=== PATIENT | male | born 1960 | race Hispanic/Latino ===

== ENCOUNTER 2022-07-03 11:20 | Inpatient (IN) | payer OTHER ==
[2022-07-03] VITALS (23 sets, daily range): BP systolic 109–175; BP diastolic 60–99
[~2022-07-03] VITALS: Ht 167.6 cm; Wt 94.8 kg
[2022-07-03] MEDS: NITROGLYCERIN 0.4 MG SL TAB SL PRN ×2 (11:21→11:26)
[2022-07-03] MEDS ORDERED: HEPARIN 25,000 UNITS/250ML D5W 250 ML IV PRN (11:30)
[2022-07-03] MEDS ORDERED: ASPIRIN 325MG TAB PO ONE (11:30)
[2022-07-03] MEDS ORDERED: NITROGLYCERIN 50MG/D5W 250ML 1 BOT IV PRN (11:30)
[2022-07-03] MEDS ORDERED: LIDOCAINE HCL 400MG/20ML VIAL ONE (11:32)
[2022-07-03] MEDS ORDERED: IOHEXOL 350 MG/ML 100ML INFUS..BTL IV ONE (11:33)
[2022-07-03] MEDS ORDERED: NITROGLYCERIN 50MG VIAL ONE (11:33)
[2022-07-03] MEDS ORDERED: IOHEXOL-350 50ML VIAL IV ONE (11:33)
[2022-07-03] MEDS ORDERED: FENTANYL CITRATE PF 50 MCG/1 ML 2ML VIAL ONE ×2 (11:33→12:28)
[2022-07-03] MEDS ORDERED: IOHEXOL-350 75 ML VIAL IV ONE (11:33)
[2022-07-03] MEDS ORDERED: HEPARIN 10,000 UNIT/10ML (1,000 UNIT/ML) VIAL ONE (11:33)
[2022-07-03] MEDS ORDERED: MIDAZOLAM HCL 1 MG/ML 2ML VIAL ONE (11:33)
[2022-07-03] MEDS ORDERED: ATROPINE 1MG SYG IVP ONE (11:34)
[2022-07-03] MEDS ORDERED: PRASUGREL HCL 10 MG TABLET ONE (11:35)
[2022-07-03] MEDS ORDERED: DOPAMINE HCL 400 MG/D5%-WATER 0 ML IV ONE (11:35)
[2022-07-03 11:41] LABS: BASOPHILS % (AUTO) 0.4 % (0.0-5.0); EOSINOPHILS % (AUTO) 2.2 % (0.0-8.0); HEMATOCRIT 46.2 % (42-54); LYMPHOCYTES % (AUTO) 26.8 % (21.0-51.0); MEAN CORPUSCULAR HEMOGLOBIN 28.4 pg (27.0-33.0); MEAN CORPUSCULAR HGB CONC 33.1 g/dL (32.0-36.0); MEAN CORPUSCULAR VOLUME 85.9 fL (79-99); MONOCYTES % (AUTO) 6.5 % (3.0-13.0); NEUTROPHILS % (AUTO) 63.7 % (40.0-77.0); PLATELET COUNT (AUTO) 255 K/uL (130-400); RED BLOOD CELL COUNT(AUTO) 5.38 MIL/uL (4.50-6.20); RED CELL DISTRIBUTION WIDTH 13.6 % (11.0-15.5)
[2022-07-03] MEDS ORDERED: METOPROLOL TARTRATE 1 MG/ML 5ML VIAL IV ONE ×3 (12:02→12:06)
[2022-07-03 12:06] LABS: INR 0.93 (0.85-1.15); PROTHROMBIN TIME 10.2 SEC (9.6-11.6)
[2022-07-03] MEDS ORDERED: AMIODARONE 150MG VIAL ONE (12:09)
[2022-07-03 12:16] LABS: B-TYPE NATRIURETIC PEPTIDE 238 pg/mL (0-100)
[2022-07-03 12:21] LABS: ALBUMIN 3.9 g/dL (3.5-5.0); CREATININE 1.2 mg/dL (0.5-1.5); MAGNESIUM 1.6 mg/dL (1.80-2.40); POTASSIUM 3.5 mmol/L (3.5-5.1); TOTAL PROTEIN, SERUM 7.7 g/dL (6.0-8.3)
[2022-07-03] MEDS ORDERED: 0.9%NACL 1000ML 1,000 ML IV SCH (13:00)
[2022-07-03] MEDS ORDERED: POTASSIUM CHLORIDE 20MEQ/100ML 100 ML IV SCH (13:00)
[2022-07-03] MEDS ORDERED: POTASSIUM CHLORIDE 20 MEQ/100 ML BAG IV SCH (13:00)
[2022-07-03] MEDS: MAGNESIUM 2GM PREMIX 50ML 50 ML IV SCH (14:00)
[2022-07-03] MEDS ORDERED: KCL 20 MEQ ERTAB PO PRN (14:30)
[2022-07-03] MEDS ORDERED: POTASSIUM CHLORIDE 10% ELIXIR 20 MEQ/15 ML UDCUP PO PRN (14:30)
[2022-07-03] MEDS ORDERED: ONDANSETRON 4MG INJ ONE (16:46)
[2022-07-03] MEDS ORDERED: ONDANSETRON 4MG INJ IVP PRN (17:00)
[2022-07-03] MEDS ORDERED: ACETAMINOPHEN 325 MG TAB ONE (20:09)
[2022-07-03] MEDS: ATORVASTATIN 40 MG TABLET PO SCH (20:10)
[2022-07-03] MEDS ORDERED: ACETAMINOPHEN 325 MG TAB PO PRN (20:30)
[2022-07-03] MEDS ORDERED: METOPROLOL TARTRATE 25 MG TAB PO SCH (21:00)
[2022-07-04] VITALS (21 sets, daily range): BP systolic 100–145; BP diastolic 52–94
[2022-07-04] MEDS ORDERED: ZOSYN 3.375GM +NS 50ML IVPB SCH
[2022-07-04 04:17] LABS: HEMATOCRIT 43.3 % (42-54); MEAN CORPUSCULAR HEMOGLOBIN 28.5 pg (27.0-33.0); MEAN CORPUSCULAR VOLUME 86.4 fL (79-99); RED BLOOD CELL COUNT(AUTO) 5.01 MIL/uL (4.50-6.20); RED CELL DISTRIBUTION WIDTH 13.8 % (11.0-15.5); WHITE BLOOD COUNT (AUTO) 14.3 K/uL (4.8-10.8)
[2022-07-04 04:40] LABS: HEMOGLOBIN A1C 5.6 % (4.0-6.0)
[2022-07-04 04:51] LABS: MAGNESIUM 2.1 mg/dL (1.80-2.40)
[2022-07-04] MEDS: ASPIRIN 325MG TAB PO SCH (08:32)
[2022-07-04] MEDS: PRASUGREL HCL 10 MG TABLET PO SCH (08:32)
[2022-07-04] MEDS: PANTOPRAZOLE 40 MG TAB DR PO SCH (08:32)
[2022-07-04] MEDS: LISINOPRIL 10 MG TABLET PO SCH (08:33)
[2022-07-04] MEDS: METOPROLOL TARTRATE 25 MG TAB PO SCH ×2 (08:34→20:20)
[2022-07-04] MEDS ORDERED: METOPROLOL TARTRATE 25 MG TAB PO ONE (16:00)
[2022-07-04 19:23] LABS: APPEARANCE,URINE CLEAR (CLEAR); BILIRUBIN,URINE NEGATIVE (NEGATIVE); COLOR,URINE YELLOW (YELLOW); GLUCOSE, URINE (UA) NEGATIVE (NEGATIVE); KETONES,URINE NEGATIVE (NEGATIVE); LEUKOCYTE ESTERASE ,URINE NEGATIVE Leu/uL (NEGATIVE); NITRATE,URINE NEGATIVE (NEGATIVE); PH,URINE 5.5 (5.0-8.0); PROTEIN,URINE NEGATIVE (NEGATIVE); UROBILINOGEN,URINE 0.2 mg/dL (0.2-1.0)
[2022-07-04 19:28] LABS: MUCUS,URINE RARE LPF (None Seen); RBC,URINE 0-1 /HPF (0-1); WBC,URINE 0-1 /HPF (0-1)
[2022-07-04 19:30] LABS: AMPHET/METH SCREEN,URINE NEGATIVE (NEGATIVE); BARBITURATE SCREEN, URINE NEGATIVE (NEGATIVE); BENZODIAZEPINES SCREEN,URINE POSITIVE (NEGATIVE); CANNABINOID SCREEN,URINE NEGATIVE (NEGATIVE); COCAINE SCREEN,URINE NEGATIVE (NEGATIVE); OPIATE SCREEN,URINE NEGATIVE (NEGATIVE); PHENCYCLIDINE SCREEN,URINE NEGATIVE (NEGATIVE)
[2022-07-04] MEDS: ATORVASTATIN 40 MG TABLET PO SCH (20:20)
[2022-07-05 00:19] VITALS: BP 127/79
[2022-07-05 03:43] LABS: HEMATOCRIT 39.6 % (42-54); MEAN CORPUSCULAR HEMOGLOBIN 29.2 pg (27.0-33.0); MEAN CORPUSCULAR HGB CONC 33.3 g/dL (32.0-36.0); MEAN CORPUSCULAR VOLUME 87.6 fL (79-99); RED BLOOD CELL COUNT(AUTO) 4.52 MIL/uL (4.50-6.20); RED CELL DISTRIBUTION WIDTH 13.7 % (11.0-15.5); WHITE BLOOD COUNT (AUTO) 11.5 K/uL (4.8-10.8)
[2022-07-05 04:06] LABS: ALBUMIN 3.2 g/dL (3.5-5.0); BILIRUBIN,DIRECT 0.1 mg/dL (0.0-0.3); CREATININE 1.1 mg/dL (0.5-1.5); MAGNESIUM 1.8 mg/dL (1.80-2.40); TOTAL PROTEIN, SERUM 6.4 g/dL (6.0-8.3)
[2022-07-05 04:30] VITALS: BP 124/79
[2022-07-05] MEDS: MAGNESIUM 2GM PREMIX 50ML 50 ML IV SCH (04:52)
[2022-07-05 07:00] VITALS: BP 132/81
[2022-07-05] MEDS: LISINOPRIL 10 MG TABLET PO SCH (08:48)
[2022-07-05] MEDS: PRASUGREL HCL 10 MG TABLET PO SCH (08:48)
[2022-07-05] MEDS: PANTOPRAZOLE 40 MG TAB DR PO SCH (08:48)
[2022-07-05] MEDS: ASPIRIN 325MG TAB PO SCH (08:48)
[2022-07-05] MEDS: METOPROLOL TARTRATE 25 MG TAB PO SCH (08:49)
== END 2022-07-05 10:35 | disposition home or self-care (01) | DRG 247 ==
LOC: EDH 11:20 → EDHIP 11:21 → 2BH 13:48 → 2AH 07-04 09:39
PROVIDERS: ADMIT Internal Medicine; ATTEND Internal Medicine
PROC: 4A023N7 Measurement of Cardiac Sampling and Pressure, Left Heart, Percutaneous Approach (ICD-10-PCS; principal; 2022-07-03)
PROC: 027034Z Dilation of Coronary Artery, One Artery with Drug-eluting Intraluminal Device, Percutaneous Approach (ICD-10-PCS; 2022-07-03)
PROC: 02703ZZ Dilation of Coronary Artery, One Artery, Percutaneous Approach (ICD-10-PCS; 2022-07-03)
PROC: B2111ZZ Fluoroscopy of Multiple Coronary Arteries using Low Osmolar Contrast (ICD-10-PCS; 2022-07-03)
PROC: B41F1ZZ Fluoroscopy of Right Lower Extremity Arteries using Low Osmolar Contrast (ICD-10-PCS; 2022-07-03)
DX: I21.19 ST elevation (STEMI) myocardial infarction involving other coronary artery of inferior wall (principal); E83.42 Hypomagnesemia; Z68.33 Body mass index [BMI] 33.0-33.9, adult; I25.10 Atherosclerotic heart disease of native coronary artery without angina pectoris; I25.5 Ischemic cardiomyopathy; I48.0 Paroxysmal atrial fibrillation; E66.09 Other obesity due to excess calories; E78.5 Hyperlipidemia, unspecified; F17.210 Nicotine dependence, cigarettes, uncomplicated; Z79.82 Long term (current) use of aspirin; Z79.899 Other long term (current) drug therapy
CPT/HCPCS: 36415; 71045; 80048; 80053; 80061; 80076; 80305; 81001; 82550; 82948; 83036; 83735; 83874; 83880; 84484; 85025; 85027; 85378; 85610; 85730; 93005; 93306; 93356; 93454; 99156; 99157; C1760; C1769; C1887; C1894; C9600; C9606; G0378; J0282; J0461; J1265; J1644; J2250; J2405; J3010; J3475; J3490; Q9967

== ENCOUNTER → 2024-05-18 | Outpatient (CLI) | payer SELFPAY ==
[2024-05-18 16:34] LABS: BILIRUBIN,TOTAL 0.3 mg/dL (0.2-1.0); POTASSIUM 4.7 mmol/L (3.5-5.1); TOTAL PROTEIN, SERUM 7.7 g/dL (6.0-8.3)
== END | disposition home or self-care (01) ==
LOC: LAB 13:42
PROVIDERS: ATTEND Internal Medicine Cardiovascular Disease
DX: I25.5 Ischemic cardiomyopathy (principal); I10 Essential (primary) hypertension; E78.5 Hyperlipidemia, unspecified
CPT/HCPCS: 36415; 80053; 80061